=== PATIENT | female | born 1950 | race Caucasian/White ===

== ENCOUNTER → 2016-09-07 | Outpatient (CLI) | payer MEDICARE, OTHER ==
--- NOTE | 2016-09-10 15:48 | SS ---
ADMIT: 09/07/2016 RM/LOC: [facility] MR#: [id number] [id number] [place], [place] [address] CHLOE HUDSON [address] [place] [address] Sleep Study SEX: F AGE: 66 : 1950 STUDY DATE: 09/07/2016 CLINICAL HISTORY: A 66-year-old female, body mass index of 49, 69 inches tall, 330 pounds, who has symptoms of snoring, poor sleep, daytime fatigue, undergoing evaluation for obstructive sleep apnea. TECHNICAL DESCRIPTION: Split night polysomnogram performed on night of 09/07/2016, attended by a trained environmental health technologist. DIAGNOSTIC POLYSOMNOGRAM FINDINGS: SLEEP: Total time bed is 246 minutes, total sleep time 123.5 minutes, sleep efficiency 50.2%. 35.5% hours spent in stage II sleep, 13% hours spent in stage REM. BREATHING: Severe predominantly REM-related obstructive sleep apnea with apnea- hypopnea of 36 during the study. There were 3 central apneas, 29 obstructive apneas, and 41 obstructive hypopneas all predominant seen in REM sleep. OXYGEN SATURATION: Mean sleeping 91%. Lowest oxygen 77%. 19.8% hours spent in saturating 80% to 89%. CARDIAC: Average heart rate is 75 beats per minute. MOVEMENTS/POSITION: During the study, the patient slept predominantly in lateral position. No significant supine sleep was seen with no significant leg movements. CPAP TITRATION FINDINGS: TITRATION DESCRIPTION: The patient was titrated from 5 cm CPAP to 9 cm of CPAP. A ResMed AirFit N20 medium nasal mask was used. SLEEP: Total time in bed 200 minutes, total sleep time 177.5 minutes, sleep efficiency 88.8%. 48.5% hours spent in stage II sleep, 30% hours spent in stage REM suggestive of REM rebound. BREATHING: Excellent resolution of obstructive sleep apnea was seen on CPAP at 9 cm. The patient was seen in REM sleep in supine position. OXYGEN SATURATION: Mean sleeping of 94%. ADMIT: 09/07/2016 RM/LOC: [facility] MR#: [id number] [address] [id number] CHLOE HUDSON [address] [place] [address] Sleep Study SEX: F AGE: 66 : 1950 CARDIAC: Average heart rate is 63 beats per minute. MOVEMENTS/POSITION: During the study, the patient slept in the supine lateral position with no significant leg movements. IMPRESSION/PLAN: Severe REM-related obstructive sleep apnea with apnea- hypopnea of 36. Recommend using CPAP at 9 cm mask as mentioned above. Recommend losing weight, avoiding sedatives and alcohol. Refrain from driving if excessively sleepy. Clinical correlation needed. CPAP compliance followup is recommended. Elie Peters MD/ katie JOB #: [id number] CC: MAURO Boo, Attending Physician Zan Lee MD, Family Physician Fred Major MD
== END | disposition home or self-care (01) ==
LOC: RESC 20:38
DX: G47.30 Sleep apnea, unspecified (principal); G47.36 Sleep related hypoventilation in conditions classified elsewhere